=== PATIENT | female | born 1955 | race Caucasian/White ===

== ENCOUNTER → 2016-09-24 | Outpatient (CLI) | payer MEDICARE, MEDICAID ==
[~2016-09-24] MED LIST: AUGMENTIN1 TA2 PO; BACTRIM DS 8001 TA1 PO; CHEWABLE ASPIRI81 M1 PO; CIPRO 500MG TA500 MG PO; HUMALOG PEN100 U/ML SC; HUMULIN 70100 UNITS/ SC; INSULIN GL100 UNITS/ SC; IRON TABLETS325 MG PO; KEFLEX 500MG.500 MG PO; LANTUS INS100 UNITS/ SC; LISINOPRIL 10MG10 MG PO; LISINOPRIL20 MG PO; LOPRESSOR 50 MG50 MG PO; LORTAB 5/500 501 TAB PO; METOPROLOL100 MG PO; NOVOLIN 70/30 710 ML SC; NOVOLOG100 U/ML SC; OMEPRAZOLE40 MG PO; SEPTRA DS 800 M1 TAB PO; TRICOR48 MG PO; VANCOMYCIN 101000 MG IV; VANCOMYCIN HC1000 MG IJ; VANCOMYCIN HC1000 MG IV; VICODIN 5/500 T1 TAB PO
--- NOTE | 2016-09-24 11:38 | RADIOLOGY REPORT PS360 ---
BONE DENSITOMETRY(HIP:LT SPINE HISTORY: POST MENOPAUSAL ORDERING PHYSICIAN: Shashank Gutierrez MD PATIENT AGE: 61 years COMPARISON: None FINDINGS: The BMD measured at the right femoral neck is 0.984 g/cm squared with a T score of -0.4. This is considered Osteopenic according to the World Health Organization criteria. Fracture risk is Moderate. Treatment is advised. IMPRESSION: Normal bone density. Follow-up exam recommended September 2018
--- NOTE | 2016-09-25 12:48 | RADIOLOGY REPORT PS360 ---
DIG MAMM-SCREEN [facility]IGI W/CAD CAD Screening ORDERING PHYSICIAN : Shashank Gutierrez MD PATIENT AGE: 61 years GENDER: Female COMPARISON: Previous mammograms: No previous mammograms available baseline study INDICATION: Routine screening TECHNIQUE: Standard CC and MLO images were obtained. R2 CAD reviewed. FINDINGS: Low-density breast. Scattered benign-appearing punctate calcifications but no suspicious grouped calcifications. No significant dominant mass. There may be some subtle small intramammary lymph node at the deep lateral x-ray left breast as well as a small lymph node at the deep right breast on MLO view. These can be followed. One year follow-up recommended for these most likely benign findings. Deeper at the axillary region bilaterally we see generous fat filled benign axillary lymph nodes measuring up to 2 cm. Not of concern IMPRESSION: Baseline study. Low-density breast. No areas of significant concern. Minimal benign features bilaterally patient with benefit from bilateral follow-up in not over one year. BI-RADS CATEGORY: 2_Benign RECOMMENDED FOLLOWUP: 11-12 month ... 12 MONTH FOLLOW-UP (A letter has been sent to the patient regarding results of the study.)
== END ==
LOC: RAD 09:30
DX: Z12.31 Encounter for screening mammogram for malignant neoplasm of breast (principal); Z78.0 Asymptomatic menopausal state
CPT/HCPCS: G0202